=== PATIENT | female | born 1945 | race Caucasian/White ===

== ENCOUNTER 2017-04-22 12:08 | Inpatient (IN) | payer MEDICARE ==
[~2017-04-22] VITALS: Ht 165.1 cm; Wt 96.2 kg
--- NOTE | ~2017-04-22 | OP ---
PATIENT NAME: FRANCESCO SAMAYOA MEDICAL RECORD: [id number] :45 LOCATION:D.M2 D.2129 ADMISSION DATE:04/22/17 SURGEON: NAZARIO DUNLAP MD DATE OF OPERATION: 04/23/2017 PROCEDURE: Left heart catheterization, selective coronary angiography, right femoral artery approach. CATHETERS: A 5-Latvian sheath, 5/4 left and right Edin, 5/4 pig. The procedure was well tolerated and the patient was returned to steiner, sheath removed. ExoSeal device placed. FINDINGS: Left ventriculography in 30-degree SALINAS view shows global hypokinesis. Overall, function reduced to 30%. CORONARY ANATOMY: LEFT MAIN: Left main is free of disease. LAD: Free of disease in the diagonal system. CIRCUMFLEX: Free of disease in the marginal system. RIGHT CORONARY ARTERY: Huge dominant, right, free of disease. IMPRESSION: Nonischemic cardiomyopathy, this may be tachy-mediated. She had a run of SVT while in the lab. Might also be secondary to hypothyroidism given her marked elevated TSH. We will start on beta blockade. It should help with cardiomyopathy as well as arrhythmia. Add Aldactone. Thyroid will be addressed with primary care. TRANSINT:[id number] Voice Confirmation ID: [id number] DOCUMENT ID: [id number] NAZARIO DUNLAP MD at 1337 CC: [id number] DICTATION DATE: 04/23/17 1323 BUFFING MACHINE OPERATOR SEMIAUTOMATIC: 04/24/17 0112 DIS IN 04/24/17 [place] [address]
--- NOTE | ~2017-04-22 | EC ---
PATIENT:FRANCESCO SAMAYOA DATE OF SERVICE: 04/22/17 SEX: F MEDICAL RECORD: [id number] DATE OF : 45 LOCATION:D.M2 D.212 AGE OF PATIENT: 71 ADMISSION DATE: 04/22/17 REFERRING PHYSICIAN: INTERPRETING PHYSICIAN: NAZARIO DUNLAP MD ECHOCARDIOGRAM REPORT ECHO CHARGES 4 ECHO COMPLETE CLINICAL DIAGNOSIS: CHEST PAIN HX OF HTN ECHOCARDIOGRAPHIC MEASUREMENTS (adult normal given) AC root (d.<3.7cm) 3.9 cm LV Septum d (<1.2 cm> 1.2 cm Valve Excursion 2.1 cm LV Septum (systole) 1.4 cm Left Atria (s.<4.0cm> 4.1 cm LVPW d(<1.2cm) 1.3 cm RV (d.<2.3cm) 3.3 cm LVPW (sytole) 1.5 cm LV diastole(<5.6CM) 5.3 cm MV E-F(>70mm/sec) cm LV systole 3.9 cm LVOT Diameter 2.1 cm MV exc.(>10mm) 1.9 cm Est.ejection fraction (50-75%) % Pericardial Effusion N DOPPLER: LVIT cm/sec A 96.0 cm/sec E 79.0 cm/sec LA cm/sec RVSP mmHg LVOT 99 cm/sec AOP1/2T m/s Asc. Ao 92 cm/sec RVOT cm/sec RA 94 cm/sec PA 103 cm/sec AV Gradient Peak 3.40 mmHg AV Mean 1.86 mmHg AV Area 4.0 cm MV Gradient Peak 4.43 mmHg MV Mean 2.01 mmHg MV Area cm COMMENTS: Rn Ante Partum: 2 SHAHANA SLATER Medical Malpractice Paralegal: 3 Dr. Mullen TAPE# PACS DATE OF SERVICE: 04/23/2017 Adequate 2D echo, color flow, spectral and M-mode. Borderline LVH. LV internal dimensions appear normal. There is global LV hypokinesis, reduced EF. Estimated EF 35%. Aortic valve is tricuspid. No stenosis by Doppler interrogation. The left atrium is upper limits of normal, mildly dilated at 4.1 cm. Mitral valve is thickened. Mild MR. Right-sided chamber is grossly normal. Mild TR by color flow imaging. TRANSINT:[id number] Voice Confirmation ID: [id number] DOCUMENT ID: [id number] ECHOCARDIOGRAM REPORT [id number] DANITAFRANCESCO 04/27/2017 Edited to correct date of service, dmm. NAZARIO DUNLAP MD at 1337 CC: [id number] DICTATION DATE: 04/24/17 1035 SENIOR PROJECT ACCOUNTANT: 04/24/17 1205 DIS IN 04/24/17 [place] [id number] [place] [id number]
--- NOTE | ~2017-04-22 | HEMODYNAMI ---
PATIENT:FRANCESCO SAMAYOA MEDICAL RECORD: [id number] : 45 LOCATION[facility].2[address] [facility]# [id number] ADMISSION DATE: 04/22/17 Generatedon:04/23/201713:23 Patient name: FRANCESCO SAMAYOA Patient #: [id number] SSN : : 1945 Date of study: 04/23/2017 Page: Of Hemodynamic Procedure Report Patient Data Patient Demographics Procedure consent was obtained First Name: FRANCESCO Gender: Female Last Name: DANITA : 1945 Patient #: [id number] Age: 71 year(s) Race: Additional ID: [id number] Contact details Address: [address] [place] [address] State: [place]: [facility] [place] Zip code: [address] Admission Admission Data Admission Date: 04/22/2017 Admission Time: 20:40 Room #: D.2129 Lab Results Lab Result Date: 04/23/2017 Lab Result Time: 0:00 Biochemistry Name Units Result Min Max BUN mg/dl 22 --(----)-* 7 18 Creatinine mg/dl 1.3 --(---*)-- 0.6 1.3 CBC Name Units Result Min Max Hemoglobin g/dl 12.6 -*(----)-- 13.5 17.5 Procedure Procedure Types Cath Procedure Diagnostic Procedure C [facility] w/Coronaries Miscellaneous Procedures Moderate Sedation up to 15 minutes Procedure Description Procedure Date Procedure Date: 04/23/2017 Procedure Start Time: 13:08 Procedure End Time: 13:19 Procedure Staff Name Function Owen Mullen MD Performing Physician Carmen Marie RT Monitor Kriss Baker RT Scrub Peng Larkin RN Nurse Procedure Data Cath Procedure Fluoroscopy Diagnostic fluoroscopy Total fluoroscopy Time: 1.1 time: 1.1 min min Diagnostic fluoroscopy Total fluoroscopy dose: 318 dose: 318 mGy mGy Contrast Material Contrast Material Type Amount (ml) Isovue 300 39 Entry Location Entry Primary Successful Side Size Upsize Upsize Entry Closure Succes sful Closure Location (Fr) 1 (Fr) 2 (Fr) Remarks Device Remarks Femoral Right 5 Fr Exoseal artery Estimated blood loss: 5 ml Diagnostic catheters Device Type Used For End Catheter Placement MULTIPACK JL 4.0 5Fr Left Coronary catheter Angiography MULTIPACK 3DRC 5Fr Right Coronary catheter Angiography MULTIPACK Pigtail 5 Fr Multi-vessel catheter Angiography Procedure Complications No complications Procedure Medications Medication Administration Route Dosage 0.9% NaCl I.V. 100 ml/hr Oxygen NC 2 l/min Heparin Flush Bag added to field 2 bags (1000units/500ml NS) Lidocaine 2% added to field 20 Versed I.V. 0.5 mg Fentanyl I.V. 25 mcg Adenosine IV 3mg/ml I.V. 12 mg Hemodynamics Rest HGB: 12.6 (g/dl) Heart Rate: 96 (bpm) Pressure Samples Time Site Value (mmHg) Purpose Heart Use Rate(bpm) 13:15 LV 154/34,31 Snapshot 110 13:15 AO 166/90(109) Pullback 106 Gradients Valve Time Site Site 2 Mean SEP/DFP Peak To Heart Use 1 (mmHg) (sec/min) Peak Rate (mmHg) (bpm) Aortic 13:15 LV AO 106 166/90(109) Snapshots Pre Cath Intra NCS Post Cath Vital Signs Time Heart Resp SPO2 etCO2 NIBP (mmHg) Rhythm Pain Sedation Rate (ipm) (%) (mmHg) Status Level (bpm) 12:51:05 98 21 95 28 161/105(147) NSR 0 (11) 10(A) , No pain 12:55:56 90 18 98 33.3 161/105(135) ST 0 (11) 10(A) , No pain 13:01:27 164 20 96 26.5 126/104(115) ST 0 (11) 10(A) , No pain 13:14:40 127 18 91 32.5 121/95(114) ST 0 (11) 9(A) , No pain 13:20:10 87 11 91 30.3 162/95(127) NSR 0 (11) 10(A) , No pain Medications Time Medication Route Dose Verified Delivered Reason Notes Effe ctiveness by by 12:53:54 0.9% NaCl I.V. 100 Peng Peng Per ml/hr Trae Larkin physician RN RN 12:54:07 Oxygen NC 2 Peng Peng Per l/min Trae Larkin physician RN RN 12:54:20 Heparin Flush added 2 Peng Peng used for Bag to bags Lorigan Lorvi procedure (1000units/500ml field RN RN NS) 12:54:36 Lidocaine 2% added 20ml Peng Peng for local to vial Lorigan Lorigan anesthetic field RN RN 13:07:15 Versed I.V. 0.5 Peng Peng for mg Lorigan Lorigan sedation RN RN 13:09:48 Fentanyl I.V. 25 Peng Peng for mcg Lorigan Lorigan sedation RN RN 13:16:00 Adenosine IV I.V. 12 mg Peng Peng for 3mg/ml Lorigan Lorigan arrhythmia RN technical support agent Log Time Note 12:36:49 Informed consent obtained and on chart 12:37:41 Kriss Baker RT(R) sent for patient. Start room use. 12:37:42 Time tracking: Regular hours 12:37:47 Plan of Care:Hemodynamics will remain stable., Cardiac rhythm will remain stable., Comfort level will be maintained., Respiratory function will remain adequate., Patient/ family verbilizes understanding of procedure., Procedure tolerated without complication., Recovers from procedure without complications.. 12:41:21 Patient received from Med II to CCL 1 Alert and oriented. Tansferred to table in Supine position. 12:41:23 Warm blankets applied, and emy hugger turned on for patient comfort. 12:41:23 Correct patient and procedure confirmed by team. 12:41:25 ECG and BP/O2 sat monitors applied to patient. 12:50:01 Baseline sample Acquired. 12:50:01 Vital chart was started 12:50:05 Rhythm: sinus rhythm 12:50:08 Full Disclosure recording started 12:50:12 H&P Date Dictated: 04/23/2017 New H&P dictated by physician.. 12:50:20 Pre-procedure instructions explained to patient. 12:50:21 Pre-op teaching completed and patient verbalized understanding. 12:50:22 Family in waiting room. 12:50:24 Patient NPO since Midnight. 12:50:30 Is the patient allergic to Iodine/contrast media? No. 12:50:32 Was the patient premedicated? No 12:50:33 Is patient on blood thinner?No 12:50:35 Patient diabetic? No. 12:50:38 Previous problem with sedation/anesthesia? No ? 12:50:40 Snore? Yes 12:50:47 Sleep apnea? No 12:50:49 Deviated septum? No 12:50:49 Opens mouth fully? Yes 12:50:50 Sticks out tongue? Yes 12:50:53 Airway obstruction? No ? 12:50:57 Dentures? No ? 12:51:01 Pre procedure: right dorsailis pedis pulse 1+ Palpable, but thready & weak; easily obliterated 12:51:03 Pre procedure: left dorsailis pedis pulse 1+ Palpable, but thready & weak; easily obliterated 12:51:07 Patient pain scale 0/10 ?. 12:53:54 0.9% NaCl 100 ml/hr I.V. was administered by Peng Larkin RN; Per physician; 12:54:07 Oxygen 2 l/min NC was administered by Peng Larkin RN; Per physician; 12:54:20 Heparin Flush Bag (1000units/500ml NS) 2 bags added to field was administered by Peng Larkin RN; used for procedure; 12:54:36 Lidocaine 2% 20ml vial added to field was administered by Peng Larkin RN; for local anesthetic; 12:56:26 Lab Result : BUN 22 mg/dl 12:56:26 Lab Result : Hemoglobin 12.6 g/dl 12:56:26 Lab Result : Creatinine 1.3 mg/dl 12:56:30 Lab results completed and on chart. 12:56:35 Right groin area was prepped with chlora-prep and draped in sterile fashion 12:56:36 Alarms reviewed by R. N. 12:56:37 Sharps counted by scrub and verified by R.N. 13:02:25 Zero performed for pressure channel P1 13:04:48 Physician arrived 13:04:48 --------ALL STOP TIME OUT------ 13:04:49 Final Timeout: patient, procedure, and site verified with staff and physician. All members of the team are in agreement. 13:04:52 Right groin site verified by team. 13:04:55 Physical assessment completed. ASA score P 2 - A patient with mild systemic disease as per Owen Mullen MD. 13:04:59 Sedation plan: IV Moderate Sedation Medication:Versed, Fentanyl 13:07:15 Versed 0.5 mg I.V. was administered by Peng Larkin RN; for sedation; 13:08:10 Use device set Femoral Dx 13:08:12 ACIST Syringe (83781) opened to sterile field. 13:08:12 Bag Decanter (2002S) opened to sterile field. 13:08:13 Medline Cath Pack ([id number]) opened to sterile field. 13:08:13 SHEATH 5FR [place] (KNP810) opened to sterile field. 13:08:14 DIAGNOSTIC WIRE .035 260cm J wire (709109) opened to sterile field. 13:08:15 ACIST Hand Control (07087) opened to sterile field. 13:08:16 ACIST Manifold (30375) opened to sterile field. 13:08:16 DIAGNOSTIC Multipack 5Fr catheter set (CI4546) opened to sterile field. 13:08:17 Tegaderm 4 x 4 (1626W) opened to sterile field. 13:08:22 Procedure started. 13:08:25 Local anesthetic to right femoral artery with Lidocaine 2% by Owen Mullen MD.INITIAL ACCESS ONLY 13:08:36 A 5 Fr sheath was inserted into the Right Femoral artery 13:09:32 A MULTIPACK JL 4.0 5Fr catheter was advanced over the wire and used for Left Coronary Angiography. 13:09:48 Fentanyl 25 mcg I.V. was administered by Peng Larkin RN; for sedation; 13:10:22 LCA angiography performed. 13:10:38 Injector settings: Ml/sec: 3, Volume: 6, 13:11:15 Catheter removed. 13:11:39 A MULTIPACK 3DRC 5Fr catheter was advanced over the wire and used for Right Coronary Angiography. 13:12:10 RCA angiography performed. 13:12:13 Injector settings: Ml/sec: 3, Volume: 6, 13:14:31 Catheter removed. 13:14:37 A MULTIPACK Pigtail 5 Fr catheter was advanced over the wire and used for Multi-vessel Angiography. 13:15:32 LV hemodynamics recorded. 13:15:34 LV gram done using SALINAS 13:15:59 EF : 30 % 13:16:00 Adenosine IV 3mg/ml 12 mg I.V. was administered by Peng Larkin RN; for arrhythmia; 13:16:08 Catheter removed. 13:16:10 EXOSEAL 5Fr (EX500) opened to sterile field. 13:16:26 Sheath removed intact; hemostasis achieved with Exoseal to the Right Femoral artery. 13:16:29 Procedure ended.(Physican Out) 13:16:34 Fluoroscopy time 01.10 minutes. 13:16:39 Fluoroscopy dose: 318 mGy 13:16:39 Flurop Dose total: 318 13:17:40 Contrast amount:Isovue 300 39ml. 13:17:42 Sharps counted by scrub and verified by R.N. 13:18:18 Insertion/operative site no bleeding no hematoma. 13:18:21 Post-op/insertion site Right Femoral artery dressed using a 4 x 4 and Tegaderm. 13:18:24 Post right femoral artery:stable 13:18:26 Post Procedure Pulses reassessed and unchanged 13:18:29 Post procedure rhythm: unchanged. 13:18:32 Estimated blood loss: 5 ml 13:18:34 Post procedure instruction explained to patient.Patient verbalizes understanding. 13:18:34 Patient needs reinforcement of post procedure teaching. 13:18:48 Procedure and supply charges have been captured, reviewed, submitted and are correct. 13:18:52 Procedure Complication : No complications 13:18:55 Vital chart was stopped 13:18:56 See physician's report for complete and final results. 13:18:59 Report given to [facility]. 13:19:01 Patient transfered to [facility] with Stretcher. 13:19:04 Procedure ended. 13:19:04 Full Disclosure recording stopped 13:19:09 End room use (Document Last) Device Usage Item Name Manufacture Quantity Catalog Hospital Part Current Minimal L ot# / Number Charge Number Stock Stock Serial# Code ACIST Acist 1 59763 306334 239413 289673 20 Syringe Medical (06789) Systems Inc Bag Microtek 1 805181 17738 790916 5 Decanter Medical Inc. () Medline Cardinal 1 [id number] 599732 69218 572409 5 Cath Pack ThingMagic ([id number]) SHEATH 5FR Terumo 1 [id number] 154705 879582 099483 40 [place] (KJP746) DIAGNOSTIC [place] 1 793039 771981 156068 471012 30 WIRE .035 260cm J wire (354359) ACIST Hand Acist 1 10979 521589 643136 617667 5 Control Medical (64614) Systems Inc ACIST Acist 1 61659 671525 398448 013754 5 Manifold Medical (52177) Systems Inc DIAGNOSTIC Cardinal 1 [id number] 780608 73490 322343 30 Multipack Health 5Fr catheter set (KP5746) Tegaderm 4 3M 1 1626W 613356 767468 248489 5 x 4 (1626W) MULTIPACK Cardinal 1 505506 5 JL 4.0 5Fr Health catheter MULTIPACK Cardinal 1 623613 5 3DRC 5Fr Health catheter MULTIPACK Cardinal 1 894338 5 Pigtail 5 Health Fr catheter EXOSEAL 5Fr Cardinal 1 EX500 841534 105931 446641 10 (EX500) Health Signature Audit [place] Stage Time Signature Unsigned Intra-Procedure 04/23/2017 Carmen Marie 1:23:00 PM RT(R) Signatures Monitor : Carmen Marie RT Signature : Date : Time : [place] [id number] [facility] [place] [address]
--- NOTE | ~2017-04-22 | CN ---
PATIENT NAME:FRANCESCO SAMAYOA MEDICAL RECORD: [id number] : 45 LOCATION:D. D.2129 ADMIT DATE: 04/22/17 ACCOUNT: [id number] CONSULTING PHYSICIAN: NAZARIO DUNLAP MD REFERRING PHYSICIAN: REINA ALFONSO MD DATE OF CONSULTATION: 04/23/2017 HISTORY OF PRESENT ILLNESS: A 71-year-old lady, really history begins with history of PMR. She has been started on high-dose steroids, tapering dose. [place] not well since that time. Noticed some marked increase in dyspnea over the last 14 days. She was traveling from [place], sent here. In the Emergency Room, negative CTA. Cardiac enzymes noted to be elevated consistent with ACS. She has a history of hypertension, hypothyroidism, and PMR. ALLERGIES: None known. SOCIAL HISTORY: Retired. Nonsmoker. Easily takes care of all ADLs. Has no set exercise program. MEDICATIONS: Unknown by the patient report. REVIEW OF SYSTEMS: The patient reports easy bruising but reports no swollen glands. The patient reports no fever, no night sweats, no significant weight gain, no significant weight loss. No significant exercise tolerance. The patient reports no dry eyes, no irritation, no vision change. Patient reports no difficulty hearing and no ear pain. Patient reports no frequent nose bleeds or nose and sinus problems. Patient reports on arm pain on exertion. No shortness of breath while lying down. No history of heart murmur. Patient reports no cough, no wheezing or coughing up blood. Patient reports no abdominal pain, no vomiting. Normal appetite. No diarrhea and not vomiting blood. No nausea and no constipation. Patient reports no incontinence. No difficulty urinating. No hematuria. No increased frequency. Patient reports no muscle aches. No weakness, no arthralgias, no back pain. No swelling of the extremities. Patient reports no abnormal mole, no jaundice, no rashes. Reports no loss of consciousness. No weakness and no numbness. No seizures, dizziness, or headaches. The patient reports no depression, no sleep disturbance, feeling safe in a relationship and no alcohol abuse. Patient reports on fatigue. Reports no runny nose or sinus pressure. No itching, no hives, and no frequent sneezing. PHYSICAL EXAMINATION: GENERAL: Pleasant female, in no acute distress. VITAL SIGNS: Blood pressure 142/83, pulse 85 and regular. HEENT: Normocephalic, atraumatic. She does have garcia facies of chronic steroid use. NECK: No JVD or bruit. HEART: Regular. A I-II/ systolic ejection murmur. LUNGS: Fair air excursion. ABDOMEN: Soft, nontender. EXTREMITIES: Pulses are 2+. There is no edema. Both upper extremities show ecchymosis consistent with steroids. NEUROLOGIC: Grossly intact. IMPRESSION: Symptomatology, abnormal ECG, elevated enzymes, fairly acute course. CONSULT REPORT [id number] FRANCESCO SAMAYOA PLAN: We will plan for diagnostic angiography, intervention based on the above. TRANSINT:[id number] Voice Confirmation ID: [id number] DOCUMENT ID: [id number] NAZARIO DUNLAP MD at 1129 CC: [id number] DICTATION DATE: 04/23/17 1049 ECONOMICS CONSULTANT: 04/23/17 1243 ADM IN [place] [id number] [place] [address]
[2017-04-22 13:02] LABS: INR 0.88 (0.85-1.17); PROTIME 11.6 SECONDS (11.6-15.0)
[2017-04-22 13:04] LABS: BASOPHILS 0.2 % (0-2); EOSINOPHILS 0.6 % (0-7); HEMATOCRIT 43.4 % (36.0-48.0); HEMOGLOBIN 13.3 g/dL (12-16); IMMATURE GRANULOCYTES 0.8 % (0-5); LYMPHOCYTES 17.3 % (15-50); MCH 24.6 pg (26.0-34.0); MCHC 30.6 g/dL (31.0-37.0); MCV 80.2 fL (80.0-100.0); MEAN PLATELET VOLUME 11.6 fL (7.4-10.4); MONOCYTES 4.9 % (2-11); NEUTROPHILS 76.2 % (40-80); PLATELET COUNT 262 10x3/uL (130-400); RBC 5.41 10x6/uL (4.00-5.40); RDW 16.7 % (11.5-14.5)
[2017-04-22 13:16] LABS: ALBUMIN 3.4 g/dL (3.4-5.0); BILIRUBIN - TOTAL 0.45 mg/dL (0.2-1.3); CALCIUM 9.3 mg/dL (8.5-10.1); CARBON DIOXIDE 23.8 mmol/L (21.0-32.0); CREATININE - SERUM 1.5 mg/dL (0.6-1.3); MAGNESIUM - SERUM 1.8 mg/dL (1.8-2.4); POTASSIUM - SERUM 3.8 mmol/L (3.5-5.1); PROTEIN - SERUM 6.5 g/dL (6.4-8.2)
[2017-04-22 13:18] LABS: TROPONIN-I 0.064 ng/mL (0.000-0.060)
[2017-04-22 14:23] LABS: C-REACTIVE PROTEIN 1.3 mg/dL (0.0-0.9)
[2017-04-22 14:24] LABS: THYROID STIMULATING HORMONE 72.19 uIU/mL (0.36-3.74)
[2017-04-22 20:04] LABS: APPEARANCE CLEAR (CLEAR); BILIRUBIN NEGATIVE (NEGATIVE); COLOR YELLOW (YELLOW); GLUCOSE 50 mg/dL (NEGATIVE); KETONE NEGATIVE (NEGATIVE); NITRITE NEGATIVE (NEGATIVE); PROTEIN NEGATIVE (NEGATIVE); SPECIFIC GRAVITY 1.015 (1.005-1.020); UROBILINOGEN NORMAL (NORMAL)
[2017-04-23] MEDS ORDERED: SYNTHROID50 MCG PO (00:45)
[2017-04-23 00:48] VITALS: BP 137/92; BMI 29.0
[2017-04-23] MEDS ORDERED: THYROID MEDICINE PO (01:00)
[2017-04-23] MEDS ORDERED: PROZAC20 MG PO (01:01)
[2017-04-23] MEDS ORDERED: HIGH BLOOD PRESSURE PO (01:01)
[2017-04-23] MEDS ORDERED: STEROID PO (01:01)
[2017-04-23 01:26] LABS: CKMB 1.7 U/L (0.0-3.6); CREATINE KINASE 84 UL (21-215)
[2017-04-23 03:08] LABS: BASOPHILS 0.1 % (0-2); EOSINOPHILS 0.1 % (0-7); HEMATOCRIT 39.4 % (36.0-48.0); HEMOGLOBIN 12.2 g/dL (12-16); IMMATURE GRANULOCYTES 0.6 % (0-5); LYMPHOCYTES 19.8 % (15-50); MCH 24.8 pg (26.0-34.0); MCV 80.2 fL (80.0-100.0); MEAN PLATELET VOLUME 11.5 fL (7.4-10.4); MONOCYTES 5.2 % (2-11); NEUTROPHILS 74.2 % (40-80); PLATELET COUNT 250 10x3/uL (130-400); RBC 4.91 10x6/uL (4.00-5.40); RDW 16.6 % (11.5-14.5); WBC 16.4 10x3/uL (4.8-10.8)
[2017-04-23 03:44] LABS: ALBUMIN 2.9 g/dL (3.4-5.0); ALKALINE PHOSPHATASE 62 U/L (46-116); ALT (SGPT) 31 U/L (10-68); BILIRUBIN - TOTAL 0.36 mg/dL (0.2-1.3); CALC OSMOLALITY 286 mosm/kg (275-300); CALCIUM 9.3 mg/dL (8.5-10.1); CARBON DIOXIDE 26.5 mmol/L (21.0-32.0); CHLORIDE - SERUM 103 mmol/L (98-107); CKMB 1.6 U/L (0.0-3.6); CREATINE KINASE 77 UL (21-215); CREATININE - SERUM 1.4 mg/dL (0.6-1.3); GLUCOSE 183 mg/dL (74-106); PROTEIN - SERUM 6.2 g/dL (6.4-8.2); SODIUM 140 mmol/L (136-145); TROPONIN-I 0.071 ng/mL (0.000-0.060); UREA NITROGEN 21 mg/dL (7-18); eGFR NON AFRICAN AMERICAN 39 mL/min (90-120)
[2017-04-23 06:23] VITALS: BP 105/66
[2017-04-23 08:00] VITALS: BP 142/83
[2017-04-23 08:20] LABS: CKMB 2.2 U/L (0.0-3.6); CREATINE KINASE 86 UL (21-215); TROPONIN-I 0.064 ng/mL (0.000-0.060)
[2017-04-23 09:30] VITALS: Ht 165.1 cm; Wt 96.2 kg
[2017-04-23 09:57] LABS: T4 THYROXIN - FREE 0.18 ng/dL (0.76-1.46); THYROID STIMULATING HORMONE 79.77 uIU/mL (0.36-3.74)
[2017-04-23 10:08] LABS: BASOPHILS 0.1 % (0-2); EOSINOPHILS 0.6 % (0-7); HEMATOCRIT 40.5 % (36.0-48.0); HEMOGLOBIN 12.6 g/dL (12-16); IMMATURE GRANULOCYTES 0.5 % (0-5); LYMPHOCYTES 30.7 % (15-50); MCH 25.2 pg (26.0-34.0); MCHC 31.1 g/dL (31.0-37.0); MEAN PLATELET VOLUME 11.1 fL (7.4-10.4); MONOCYTES 4.3 % (2-11); NEUTROPHILS 63.8 % (40-80); PLATELET COUNT 242 10x3/uL (130-400); RDW 16.6 % (11.5-14.5)
[2017-04-23 10:14] LABS: ANION GAP 19.3 mmol/L (8-16); CALCIUM 9.2 mg/dL (8.5-10.1); CARBON DIOXIDE 23.5 mmol/L (21.0-32.0); CREATININE - SERUM 1.3 mg/dL (0.6-1.3); POTASSIUM - SERUM 3.8 mmol/L (3.5-5.1)
[2017-04-23 12:00] VITALS: BP 128/81
[2017-04-23 16:00] VITALS: BP 155/105
[2017-04-23 21:36] VITALS: BP 124/80
[2017-04-24 01:29] VITALS: BP 131/87
[2017-04-24 04:48] LABS: BASOPHILS 0.1 % (0-2); EOSINOPHILS 1.3 % (0-7); HEMATOCRIT 39.7 % (36.0-48.0); IMMATURE GRANULOCYTES 0.4 % (0-5); LYMPHOCYTES 31.5 % (15-50); MCH 24.7 pg (26.0-34.0); MCHC 30.2 g/dL (31.0-37.0); MCV 81.9 fL (80.0-100.0); MEAN PLATELET VOLUME 11.3 fL (7.4-10.4); MONOCYTES 4.2 % (2-11); NEUTROPHILS 62.5 % (40-80); PLATELET COUNT 234 10x3/uL (130-400); RBC 4.85 10x6/uL (4.00-5.40); RDW 16.9 % (11.5-14.5); WBC 14.1 10x3/uL (4.8-10.8)
[2017-04-24 04:54] LABS: APPEARANCE CLEAR (CLEAR); BILIRUBIN NEGATIVE (NEGATIVE); COLOR YELLOW (YELLOW); GLUCOSE NEGATIVE (NEGATIVE); KETONE SMALL mg/dL (NEGATIVE); NITRITE NEGATIVE (NEGATIVE); PROTEIN NEGATIVE (NEGATIVE); UROBILINOGEN NORMAL (NORMAL)
[2017-04-24 05:07] LABS: ANION GAP 13.1 mmol/L (8-16); CALCIUM 8.5 mg/dL (8.5-10.1); CARBON DIOXIDE 27.6 mmol/L (21.0-32.0); CREATININE - SERUM 1.3 mg/dL (0.6-1.3); POTASSIUM - SERUM 3.7 mmol/L (3.5-5.1)
[2017-04-24] MEDS ORDERED: PRINIVIL10 MG PO (08:59)
[2017-04-24] MEDS ORDERED: PROZAC10 MG PO (08:59)
[2017-04-24] MEDS ORDERED: SYNTHROID75 MCG PO (09:00)
[2017-04-24] MEDS ORDERED: PREDNISONE20 MG PO (09:00)
[2017-04-24 10:22] VITALS: BP 148/91
[2017-04-24 13:42] VITALS: BP 116/76
[2017-04-24 16:35] VITALS: BP 155/97
[2017-04-24] MEDS ORDERED: COREG6.25 MG PO (18:24)
[2017-04-24] MEDS ORDERED: ALDACTONE25 MG PO (18:25)
[2017-04-24 20:04] VITALS: BP 142/89
== END 2017-04-24 20:24 | disposition home or self-care (01) | DRG 287 ==
LOC: D.ER 12:08 → D.M2 20:40
PROVIDERS: Emergency Medicine; Family Medicine; Internal Medicine Interventional Cardiology; Internal Medicine Nephrology; Nurse Practitioner Family
PROC: B2151ZZ Fluoroscopy of Left Heart using Low Osmolar Contrast (ICD-10-PCS; 2017-04-23)
PROC: 4A023N7 Measurement of Cardiac Sampling and Pressure, Left Heart, Percutaneous Approach (ICD-10-PCS; 2017-04-23)
PROC: B2111ZZ Fluoroscopy of Multiple Coronary Arteries using Low Osmolar Contrast (ICD-10-PCS; principal; 2017-04-23 12:37)
DX: I11.0 Hypertensive heart disease with heart failure (principal); N17.9 Acute kidney failure, unspecified; I42.9 Cardiomyopathy, unspecified; I50.33 Acute on chronic diastolic (congestive) heart failure; R00.0 Tachycardia, unspecified; T38.0X5A Adverse effect of glucocorticoids and synthetic analogues, initial encounter; M35.3 Polymyalgia rheumatica; E03.9 Hypothyroidism, unspecified; R94.31 Abnormal electrocardiogram [ECG] [EKG]; R51 Headache; E78.5 Hyperlipidemia, unspecified; R79.89 Other specified abnormal findings of blood chemistry; F32.9 Major depressive disorder, single episode, unspecified

== ENCOUNTER 2017-04-27 10:21 | Inpatient (IN) | payer MEDICARE ==
[~2017-04-27] VITALS: Ht 165.1 cm; Wt 80.9 kg
[~2017-04-27 10:21] MED LIST: ALDACTONE25 MG PO; COREG6.25 MG PO; HIGH BLOOD PRESSURE PO; PREDNISONE20 MG PO; PRINIVIL10 MG PO; PROZAC10 MG PO; PROZAC20 MG PO; STEROID PO; SYNTHROID50 MCG PO; SYNTHROID75 MCG PO; THYROID MEDICINE PO
[2017-04-27 10:50] LABS: BASOPHILS 0.1 % (0-2); EOSINOPHILS 0.9 % (0-7); HEMATOCRIT 39.5 % (36.0-48.0); IMMATURE GRANULOCYTES 0.9 % (0-5); LYMPHOCYTES 26.4 % (15-50); MCHC 30.4 g/dL (31.0-37.0); MCV 82.3 fL (80.0-100.0); MEAN PLATELET VOLUME 11.1 fL (7.4-10.4); MONOCYTES 3.9 % (2-11); NEUTROPHILS 67.8 % (40-80); PLATELET COUNT 273 10x3/uL (130-400); RDW 16.9 % (11.5-14.5); WBC 19.2 10x3/uL (4.8-10.8)
[2017-04-27 11:09] LABS: ALBUMIN 3.3 g/dL (3.4-5.0); ALKALINE PHOSPHATASE 67 U/L (46-116); ALT (SGPT) 62 U/L (10-68); CALC OSMOLALITY 290 mosm/kg (275-300); CALCIUM 8.9 mg/dL (8.5-10.1); CARBON DIOXIDE 25.8 mmol/L (21.0-32.0); CHLORIDE - SERUM 110 mmol/L (98-107); CREATININE - SERUM 1.3 mg/dL (0.6-1.3); GLUCOSE 115 mg/dL (74-106); POTASSIUM - SERUM 3.7 mmol/L (3.5-5.1); PROTEIN - SERUM 6.6 g/dL (6.4-8.2); SODIUM 145 mmol/L (136-145); UREA NITROGEN 15 mg/dL (7-18); eGFR NON AFRICAN AMERICAN 43 mL/min (90-120)
[2017-04-27 11:17] LABS: CHOL - HDL RATIO 3.6 ratio (2.3-4.1); CHOLESTEROL, TOTAL 268 mg/dL (0-200); CKMB 2.2 U/L (0.0-3.6); CREATINE KINASE 119 UL (21-215); HDL CHOLESTEROL 74 mg/dL (32-96); LDL CHOLESTEROL 152 mg/dL (0-100); LDL-HDL RATIO 2.1 ratio (1.5-3.5); PRO BNP 1548 pg/mL (0-125); TRIGLYCERIDE 213 mg/dL (30-200); TROPONIN-I 0.018 ng/mL (0.000-0.060)
[2017-04-28] VITALS (7 sets, daily range): BP systolic 120–195; BP diastolic 56–93; Ht 165.1 cm; Wt 80.9 kg
[2017-04-28 14:04] LABS: BASOPHILS 0.2 % (0-2); HEMATOCRIT 40.9 % (36.0-48.0); HEMOGLOBIN 12.3 g/dL (12-16); IMMATURE GRANULOCYTES 0.6 % (0-5); LYMPHOCYTES 25.4 % (15-50); MCH 24.7 pg (26.0-34.0); MCHC 30.1 g/dL (31.0-37.0); MCV 82.3 fL (80.0-100.0); MEAN PLATELET VOLUME 11.7 fL (7.4-10.4); MONOCYTES 5.4 % (2-11); NEUTROPHILS 67.4 % (40-80); PLATELET COUNT 196 10x3/uL (130-400); RBC 4.97 10x6/uL (4.00-5.40); RDW 17.2 % (11.5-14.5); WBC 14.3 10x3/uL (4.8-10.8)
[2017-04-28 14:25] LABS: ALBUMIN 3.2 g/dL (3.4-5.0); ANION GAP 13.9 mmol/L (8-16); BILIRUBIN - TOTAL 0.58 mg/dL (0.2-1.3); CALCIUM 8.9 mg/dL (8.5-10.1); CARBON DIOXIDE 27.9 mmol/L (21.0-32.0); CREATININE - SERUM 1.6 mg/dL (0.6-1.3); POTASSIUM - SERUM 3.8 mmol/L (3.5-5.1); PROTEIN - SERUM 6.3 g/dL (6.4-8.2)
[2017-04-29 00:59] VITALS: BP 105/79
[2017-04-29 05:11] LABS: BASOPHILS 0.1 % (0-2); EOSINOPHILS 1.3 % (0-7); HEMATOCRIT 41.2 % (36.0-48.0); HEMOGLOBIN 12.3 g/dL (12-16); IMMATURE GRANULOCYTES 0.5 % (0-5); LYMPHOCYTES 34.2 % (15-50); MCH 24.6 pg (26.0-34.0); MCHC 29.9 g/dL (31.0-37.0); MCV 82.4 fL (80.0-100.0); MEAN PLATELET VOLUME 11.5 fL (7.4-10.4); MONOCYTES 4.4 % (2-11); NEUTROPHILS 59.5 % (40-80); RDW 17.2 % (11.5-14.5); WBC 13.7 10x3/uL (4.8-10.8)
[2017-04-29 05:16] LABS: PLATELET COUNT 267 10x3/uL (130-400)
[2017-04-29 05:26] LABS: ALBUMIN 3.2 g/dL (3.4-5.0); ANION GAP 13.2 mmol/L (8-16); BILIRUBIN - TOTAL 0.66 mg/dL (0.2-1.3); CREATININE - SERUM 1.4 mg/dL (0.6-1.3); PROTEIN - SERUM 6.8 g/dL (6.4-8.2)
[2017-04-29 05:27] VITALS: BP 115/82
[2017-04-29 05:28] LABS: POTASSIUM - SERUM 3.2 mmol/L (3.5-5.1)
[2017-04-29 07:57] VITALS: BP 126/91
[2017-04-29 11:30] VITALS: BP 134/91
[2017-04-29] MEDS ORDERED: LASIX40 MG PO (13:27)
[2017-04-29] MEDS ORDERED: K-DUR20 MEQ PO (13:27)
== END 2017-04-29 18:26 | disposition home or self-care (01) | DRG 292 ==
LOC: D.ER 10:21 → D.M2 17:45
PROVIDERS: Emergency Medicine
DX: I11.0 Hypertensive heart disease with heart failure (principal); N17.9 Acute kidney failure, unspecified; I50.23 Acute on chronic systolic (congestive) heart failure; I42.9 Cardiomyopathy, unspecified; J44.9 Chronic obstructive pulmonary disease, unspecified; E03.9 Hypothyroidism, unspecified; E78.5 Hyperlipidemia, unspecified; F32.9 Major depressive disorder, single episode, unspecified; M35.3 Polymyalgia rheumatica

== ENCOUNTER 2017-05-01 12:56 | Observation (INO) | payer MEDICARE ==
[~2017-05-01] VITALS: Ht 165.1 cm; Wt 91.8 kg
--- NOTE | ~2017-05-01 | CN ---
PATIENT NAME:FRANCESCO SAMAYOA MEDICAL RECORD: [id number] : 45 LOCATION:D.Steffi D.2116 ADMIT DATE: 05/03/17 ACCOUNT: [id number] CONSULTING PHYSICIAN: LOBO GRANT MD REFERRING PHYSICIAN: CHRISTIE TRAVIS MD DATE OF CONSULTATION: 05/02/2017 ADMITTING DIAGNOSES: 1. Nonischemic cardiomyopathy. 2. Congestive heart failure, chronic systolic dysfunction. 3. Shortness of breath, dyspnea on exertion. 4. Tachycardia. 5. Hypertension. HISTORY OF PRESENT ILLNESS: Mrs. Samayoa presented last week with shortness of breath, found to have a nonischemic cardiomyopathy, ejection fraction in the 30% range. Cardiac catheterization was performed. There was no coronary artery disease present. She was started on lisinopril and Coreg as well as Lasix and Aldactone. She has continued to be short of breath. PHYSICAL EXAMINATION: GENERAL APPEARANCE: Well-nourished, well-developed, appears stated age. Level of distress, comfortable. PSYCHIATRIC: Mental status, alert, normal affect. Orientation, oriented to time, place and person. EYES: Lids and conjunctiva, noninjected. No discharge, no pallor. ENT: Lips, teeth, gums, normal dentition. Oropharynx, no cyanosis, no pallor. NECK: Carotid arteries, bilateral normal upstroke, no bruits, no thrills. JUGULAR VEINS: No jugular venous pressure or distention. CERVICAL LYMPH NODES: Nontender, nonenlarged. THYROID: Not enlarged. Nontender. No nodules. LUNGS: Respiratory effort, unlabored. CHEST: Normal curvature. No thoracic deformity. No chest wall tenderness. Percussion, resonant. Auscultation, clear. No wheezes, no rales, no rhonchi. CARDIOVASCULAR: Precordial exam, nondisplaced. No heaves or pericardial thrills. Rate and rhythm, regular. Heart sounds, normal S1, normal S2. No S3, no gallop, no rub. Systolic murmur, not heard. Diastolic murmur, not heard. EXTREMITIES: No cyanosis, no edema. Peripheral pulses, full and equal in all extremities, except as noted. No bruits appreciated. ABDOMEN: Soft, nondistended. Normal aorta. No bruit. Nontender. No masses. Liver, nontender, no hepatomegaly. Spleen, nontender, no splenomegaly. MUSCULOSKELETAL: No joint tenderness. No joint swelling. No erythema. NEUROLOGICAL: Normal gait, normal strength, normal tone. SKIN: Warm and dry. OVERALL IMPRESSION: Nonischemic cardiomyopathy. Really she is not in overt heart failure at this time. We will increase her carvedilol to get better heart rate control, but other than medical management, there is no other workup or treatment necessary at this time. TRANSINT:[id number] Voice Confirmation ID: [id number] DOCUMENT ID: [id number] CONSULT REPORT [id number] FRANCESCO SAMAYOA, LOBO AZEVEDO at 1324 CC: [id number] DICTATION DATE: 05/02/17 1111 VALUE ANALYST: 05/02/17 1424 DIS IN 05/03/17 [facility] [address] [place] [address]
[~2017-05-01 12:56] MED LIST changes: +K-DUR20 MEQ PO; +LASIX40 MG PO
[2017-05-01 13:31] LABS: BASOPHILS 0.2 % (0-2); EOSINOPHILS 0.6 % (0-7); HEMATOCRIT 43.9 % (36.0-48.0); HEMOGLOBIN 13.5 g/dL (12-16); IMMATURE GRANULOCYTES 0.7 % (0-5); LYMPHOCYTES 18.1 % (15-50); MCH 25.1 pg (26.0-34.0); MCHC 30.8 g/dL (31.0-37.0); MCV 81.6 fL (80.0-100.0); MEAN PLATELET VOLUME 11.3 fL (7.4-10.4); MONOCYTES 3.5 % (2-11); NEUTROPHILS 76.9 % (40-80); RBC 5.38 10x6/uL (4.00-5.40); RDW 16.7 % (11.5-14.5)
[2017-05-01 13:34] LABS: PLATELET COUNT 343 10x3/uL (130-400)
[2017-05-01 13:35] LABS: ALBUMIN 3.4 g/dL (3.4-5.0); ALKALINE PHOSPHATASE 73 U/L (46-116); ALT (SGPT) 33 U/L (10-68); BILIRUBIN - TOTAL 0.89 mg/dL (0.2-1.3); CALC OSMOLALITY 290 mosm/kg (275-300); CALCIUM 10.1 mg/dL (8.5-10.1); CARBON DIOXIDE 28.5 mmol/L (21.0-32.0); CHLORIDE - SERUM 98 mmol/L (98-107); CREATININE - SERUM 2.1 mg/dL (0.6-1.3); POTASSIUM - SERUM 4.3 mmol/L (3.5-5.1); PROTEIN - SERUM 7.5 g/dL (6.4-8.2); SODIUM 138 mmol/L (136-145); UREA NITROGEN 21 mg/dL (7-18); eGFR NON AFRICAN AMERICAN 25 mL/min (90-120)
[2017-05-01 13:38] LABS: GLUCOSE 308 mg/dL (74-106)
[2017-05-01 13:47] LABS: CHOL - HDL RATIO 4.1 ratio (2.3-4.1); CHOLESTEROL, TOTAL 269 mg/dL (0-200); CKMB 1.7 U/L (0.0-3.6); CREATINE KINASE 108 UL (21-215); HDL CHOLESTEROL 66 mg/dL (32-96); LDL CHOLESTEROL 148 mg/dL (0-100); LDL-HDL RATIO 2.2 ratio (1.5-3.5); MAGNESIUM - SERUM 2.7 mg/dL (1.8-2.4); PRO BNP 828 pg/mL (0-125); TRIGLYCERIDE 279 mg/dL (30-200)
[2017-05-01 14:38] LABS: APPEARANCE CLEAR (CLEAR); BILIRUBIN NEGATIVE (NEGATIVE); COLOR YELLOW (YELLOW); GLUCOSE NEGATIVE (NEGATIVE); KETONE NEGATIVE (NEGATIVE); NITRITE NEGATIVE (NEGATIVE); PROTEIN NEGATIVE (NEGATIVE); SPECIFIC GRAVITY 1.015 (1.005-1.020); UROBILINOGEN NORMAL (NORMAL)
[2017-05-01 16:59] VITALS: BP 130/79; BMI 31.6
[2017-05-01 21:39] VITALS: BP 126/75
[2017-05-02 00:54] VITALS: BP 130/81
[2017-05-02 06:02] VITALS: BP 154/80
[2017-05-02 09:46] VITALS: BP 123/70
[2017-05-02 13:27] VITALS: Ht 165.1 cm; Wt 91.8 kg
[2017-05-02 16:21] VITALS: BP 121/68
[2017-05-02 19:00] VITALS: BP 105/49
[2017-05-03] VITALS: BP 103/62
[2017-05-03 06:47] LABS: ANION GAP 12.6 mmol/L (8-16); CALCIUM 9.7 mg/dL (8.5-10.1); CARBON DIOXIDE 32.8 mmol/L (21.0-32.0); CREATININE - SERUM 2.4 mg/dL (0.6-1.3); POTASSIUM - SERUM 4.4 mmol/L (3.5-5.1)
[2017-05-03 07:07] LABS: BASOPHILS 0.1 % (0-2); EOSINOPHILS 0.2 % (0-7); HEMATOCRIT 39.6 % (36.0-48.0); HEMOGLOBIN 11.9 g/dL (12-16); IMMATURE GRANULOCYTES 0.5 % (0-5); LYMPHOCYTES 21.7 % (15-50); MCH 24.8 pg (26.0-34.0); MCHC 30.1 g/dL (31.0-37.0); MCV 82.7 fL (80.0-100.0); MEAN PLATELET VOLUME 11.5 fL (7.4-10.4); MONOCYTES 5.9 % (2-11); NEUTROPHILS 71.6 % (40-80); PLATELET COUNT 296 10x3/uL (130-400); RBC 4.79 10x6/uL (4.00-5.40); RDW 17.1 % (11.5-14.5); WBC 16.1 10x3/uL (4.8-10.8)
[2017-05-03 08:36] VITALS: BP 133/52
[2017-05-03 09:33] VITALS: BP 133/52
[2017-05-03 12:11] VITALS: BP 98/66
[2017-05-03] MEDS ORDERED: COREG12.5 MG PO (15:08)
== END 2017-05-03 16:22 | disposition home or self-care (01) ==
LOC: D.ER 12:56 → D.M2 16:06 → OBSVTIME 16:06 → D.M2 05-03 10:13
PROVIDERS: Emergency Medicine; Internal Medicine Nephrology
DX: I11.0 Hypertensive heart disease with heart failure (principal); I50.23 Acute on chronic systolic (congestive) heart failure; N17.9 Acute kidney failure, unspecified; R00.0 Tachycardia, unspecified; E03.9 Hypothyroidism, unspecified; M35.3 Polymyalgia rheumatica; F32.9 Major depressive disorder, single episode, unspecified; R51 Headache; I42.9 Cardiomyopathy, unspecified

== ENCOUNTER 2017-08-31 13:06 | Emergency (ER) | payer MEDICARE ==
[2017-05-02 13:27] VITALS: BMI 31.6
[~2017-08-31 13:06] MED LIST changes: +COREG12.5 MG PO
[2017-08-31 14:06] LABS: BASOPHILS 0.3 % (0-2); EOSINOPHILS 2.2 % (0-7); HEMATOCRIT 39.4 % (36.0-48.0); HEMOGLOBIN 12.3 g/dL (12-16); IMMATURE GRANULOCYTES 0.6 % (0-5); LYMPHOCYTES 23.4 % (15-50); MCH 25.5 pg (26.0-34.0); MCHC 31.2 g/dL (31.0-37.0); MCV 81.7 fL (80.0-100.0); MEAN PLATELET VOLUME 11.2 fL (7.4-10.4); MONOCYTES 7.1 % (2-11); NEUTROPHILS 66.4 % (40-80); PLATELET COUNT 246 10x3/uL (130-400); RBC 4.82 10x6/uL (4.00-5.40); RDW 15.7 % (11.5-14.5); WBC 11.3 10x3/uL (4.8-10.8)
[2017-08-31 14:23] LABS: ALKALINE PHOSPHATASE 108 U/L (46-116); ALT (SGPT) 132 U/L (10-68); CALC OSMOLALITY 280 mosm/kg (275-300); CALCIUM 9.2 mg/dL (8.5-10.1); CARBON DIOXIDE 25.3 mmol/L (21.0-32.0); CHLORIDE - SERUM 98 mmol/L (98-107); CREATININE - SERUM 1.3 mg/dL (0.6-1.3); POTASSIUM - SERUM 4.8 mmol/L (3.5-5.1); PROTEIN - SERUM 7.5 g/dL (6.4-8.2); SODIUM 135 mmol/L (136-145); UREA NITROGEN 16 mg/dL (7-18); eGFR NON AFRICAN AMERICAN 43 mL/min (90-120)
[2017-08-31 14:26] LABS: GLUCOSE 285 mg/dL (74-106)
[2017-08-31 14:34] LABS: CHOL - HDL RATIO 3.9 ratio (2.3-4.1); CHOLESTEROL, TOTAL 130 mg/dL (0-200); CKMB 1.8 U/L (0.0-3.6); CREATINE KINASE 310 UL (21-215); HDL CHOLESTEROL 33 mg/dL (32-96); LDL CHOLESTEROL 63 mg/dL (0-100); LDL-HDL RATIO 1.9 ratio (1.5-3.5); TRIGLYCERIDE 170 mg/dL (30-200)
[2017-08-31 14:35] LABS: C-REACTIVE PROTEIN 1.9 mg/dL (0.0-0.9); MAGNESIUM - SERUM 1.7 mg/dL (1.8-2.4)
[2017-08-31 14:37] LABS: TROPONIN-I < 0.017 ng/mL (0.000-0.060)
== END 2017-08-31 17:05 | disposition home or self-care (01) ==
LOC: D.ER 13:06
PROVIDERS: Emergency Medicine
DX: R07.9 Chest pain, unspecified (principal); E83.42 Hypomagnesemia; R73.9 Hyperglycemia, unspecified; I49.3 Ventricular premature depolarization; I10 Essential (primary) hypertension

== ENCOUNTER 2017-09-09 14:48 | Emergency (ER) | payer MEDICARE ==
[2017-05-02 13:27] VITALS: BMI 31.6
[2017-09-09 16:00] LABS: BASOPHILS 0.2 % (0-2); EOSINOPHILS 2.5 % (0-7); HEMATOCRIT 39.7 % (36.0-48.0); HEMOGLOBIN 12.4 g/dL (12-16); IMMATURE GRANULOCYTES 0.3 % (0-5); LYMPHOCYTES 24.9 % (15-50); MCH 25.6 pg (26.0-34.0); MCHC 31.2 g/dL (31.0-37.0); MCV 81.9 fL (80.0-100.0); MEAN PLATELET VOLUME 10.3 fL (7.4-10.4); MONOCYTES 7.9 % (2-11); NEUTROPHILS 64.2 % (40-80); PLATELET COUNT 283 10x3/uL (130-400); RBC 4.85 10x6/uL (4.00-5.40); RDW 15.3 % (11.5-14.5); WBC 11.7 10x3/uL (4.8-10.8)
[2017-09-09 16:14] LABS: ALBUMIN 3.1 g/dL (3.4-5.0); ALKALINE PHOSPHATASE 69 U/L (46-116); ALT (SGPT) 35 U/L (10-68); BILIRUBIN - TOTAL 0.56 mg/dL (0.2-1.3); CALC OSMOLALITY 282 mosm/kg (275-300); CALCIUM 9.9 mg/dL (8.5-10.1); CHLORIDE - SERUM 104 mmol/L (98-107); CREATININE - SERUM 1.1 mg/dL (0.6-1.3); POTASSIUM - SERUM 3.6 mmol/L (3.5-5.1); PROTEIN - SERUM 7.4 g/dL (6.4-8.2); SODIUM 142 mmol/L (136-145); UREA NITROGEN 13 mg/dL (7-18); eGFR NON AFRICAN AMERICAN 52 mL/min (90-120)
[2017-09-09 16:17] LABS: GLUCOSE 94 mg/dL (74-106)
[2017-09-09 16:25] LABS: CHOL - HDL RATIO 2.4 ratio (2.3-4.1); CHOLESTEROL, TOTAL 104 mg/dL (0-200); CKMB 0.3 U/L (0.0-3.6); CREATINE KINASE 58 UL (21-215); HDL CHOLESTEROL 44 mg/dL (32-96); LDL CHOLESTEROL 26 mg/dL (0-100); LDL-HDL RATIO 0.6 ratio (1.5-3.5); PRO BNP 182 pg/mL (0-125); TRIGLYCERIDE 170 mg/dL (30-200)
[2017-09-09 16:30] LABS: TROPONIN-I < 0.017 ng/mL (0.000-0.060)
== END 2017-09-09 18:17 | disposition home or self-care (01) ==
LOC: D.ER 14:48
PROVIDERS: Family Medicine
DX: R07.89 Other chest pain (principal)

== ENCOUNTER 2017-10-26 14:57 | Emergency (ER) | payer MEDICARE ==
[~2017-10-26] VITALS: Ht 165.1 cm; Wt 81.8 kg
[2017-10-26 14:59] VITALS: Ht 165.1 cm; Wt 81.8 kg
[2017-10-26] MEDS ORDERED: CYMBALTA30 MG PO (15:03)
[2017-10-26] MEDS ORDERED: GLUCOTROL 5 MG T5 MG PO (15:04)
[2017-10-26 16:59] LABS: APPEARANCE CLOUDY (CLEAR); COLOR DK YELLOW (YELLOW); GLUCOSE NEGATIVE (NEGATIVE); NITRITE POSITIVE (NEGATIVE); PROTEIN NEGATIVE (NEGATIVE)
[2017-10-26 17:00] LABS: BILIRUBIN NEGATIVE (NEGATIVE); KETONE MODERATE mg/dL (NEGATIVE); UROBILINOGEN NORMAL (NORMAL)
[2017-10-26 17:01] LABS: BACTERIA MANY /hpf (NONE SEEN); EPITHELIAL CELLS RARE /hpf (0-5); RED CELLS - URINE NONE SEEN /hpf (0-5); WHITE CELLS - URINE >50 /hpf (0-5)
[2017-10-26 17:42] LABS: BASOPHILS 0.2 % (0-2); EOSINOPHILS 1.5 % (0-7); HEMATOCRIT 40.4 % (36.0-48.0); IMMATURE GRANULOCYTES 0.3 % (0-5); LYMPHOCYTES 22.8 % (15-50); MCH 25.2 pg (26.0-34.0); MCHC 32.2 g/dL (31.0-37.0); MCV 78.4 fL (80.0-100.0); MEAN PLATELET VOLUME 10.8 fL (7.4-10.4); MONOCYTES 7.2 % (2-11); PLATELET COUNT 267 10x3/uL (130-400); RBC 5.15 10x6/uL (4.00-5.40); RDW 15.2 % (11.5-14.5)
[2017-10-26 18:06] LABS: BILIRUBIN - TOTAL 1.31 mg/dL (0.2-1.3); CALCIUM 9.2 mg/dL (8.5-10.1); CARBON DIOXIDE 27.6 mmol/L (21.0-32.0); CREATININE - SERUM 0.9 mg/dL (0.6-1.3); POTASSIUM - SERUM 3.6 mmol/L (3.5-5.1); PROTEIN - SERUM 7.6 g/dL (6.4-8.2)
[2017-10-26] MEDS ORDERED: LEVAQUIN500 MG PO (18:48)
[2017-10-26] MEDS ORDERED: PREDNISONE50 MG PO (18:48)
[2017-10-26 19:15] VITALS: BP 145/80
== END 2017-10-26 19:15 | disposition home or self-care (01) ==
LOC: D.ER 14:57
PROVIDERS: Family Medicine
DX: N39.0 Urinary tract infection, site not specified (principal); E86.0 Dehydration; M35.3 Polymyalgia rheumatica; I10 Essential (primary) hypertension; J44.9 Chronic obstructive pulmonary disease, unspecified

== ENCOUNTER → 2019-05-04 09:43 | Outpatient (CLI) | payer OTHER ==
--- NOTE | ~2019-05-04 | EC ---
PATIENT:FRANCESCO SAMAYOA DATE OF SERVICE: 05/04/19 SEX: F MEDICAL RECORD: [id number] DATE OF : 45 [facility]GE [facility] PAT[facility]: 73 ADMISSION DATE: 05/04/19 REFERRING PHYSICIAN: INTERPRETING PHYSICIAN: LOBO AVILA MD ECHOCARDIOGRAM REPORT ECHO CHARGES 4 ECHO COMPLETE Date: 05/04/19 CLINICAL DIAGNOSIS: CARDIOMYOPATHY/PALPITATIONS/ TACHYCARDIA H/O HTN/A-FIB ECHOCARDIOGRAPHIC MEASUREMENTS (adult normal given) AC root (d.<3.7cm) 3.1 cm LV Septum d (<1.2 cm> 1.5 cm Valve Excursion 2.0 cm LV Septum (systole) 1.6 cm Left Atria (s.<4.0cm> 3.2 cm LVPW d(<1.2cm) 1.2 cm RV (d.<2.3cm) 2.2 cm LVPW (sytole) 1.7 cm LV diastole(<5.6CM) 5.3 cm MV E-F(>70mm/sec) cm LV systole 3.6 cm LVOT Diameter 1.9 cm MV exc.(>10mm) cm Est.ejection fraction (50-75%) % DOPPLER: LVIT cm/sec A 101 cm/sec E 43.0 cm/sec LA cm/sec RVSP 18.0 mmHg LVOT 83.0 cm/sec AOP1/2T m/s Asc. Ao 122 cm/sec RVOT 74.0 cm/sec RA cm/sec PA 91.0 cm/sec AV Gradient Peak 6.0 mmHg AV Mean 3.1 mmHg AV Area 2.1 cm MV Gradient Peak 4.7 mmHg MV Mean 1.4 mmHg MV Area cm COMMENTS: OP - HC Lot Associate: 1 ANDRE NEWARK Telecommunications Network Engineer: 1 Dr. Avila TAPE# PACS Pericardial Effusion N DATE OF SERVICE: 05/04/2019 FINDINGS: 1. Left ventricular chamber size is within normal limits. Left ventricular systolic function is mildly reduced at 40% to 45%. 2. Left atrium is within normal limits at 3.2 cm. Right atrium and right ventricular chamber sizes are as well within normal limits. 3. Valvular structures have normal structure and motion. 4. Doppler interrogation reveals only trace mitral regurgitation, no other ECHOCARDIOGRAM REPORT [id number] FRANCESCO SAMAYOA valvular insufficiency or stenosis. Pulmonary systolic pressure estimated at 18 mmHg. 5. No evidence of pericardial effusion or left ventricular thrombus. TRANSINT:[id number] Voice Confirmation ID: [id number] DOCUMENT ID: [id number] LOBO AVILA MD CC: [id number] DICTATION DATE: 05/07/191656 GILL NET STRINGER: 05/07/19 2251 DEP CLI 05/04/19 [place] [id number] [place] [id number]
[~2019-05-04 09:43] MED LIST changes: +CYMBALTA30 MG PO; +GLUCOTROL 5 MG T5 MG PO; +LEVAQUIN500 MG PO; +PREDNISONE50 MG PO
== END | disposition home or self-care (01) ==
LOC: D.HCCECHO 09:43
PROVIDERS: ATTEND Internal Medicine Interventional Cardiology
DX: I42.0 Dilated cardiomyopathy (principal)

== ENCOUNTER → 2020-01-23 | Emergency (ER) | payer SELFPAY ==
[~2020-01-23] VITALS: Ht 165.1 cm; Wt 80.0 kg
[2020-01-23 17:43] VITALS: Ht 165.1 cm; Wt 80.0 kg
[2020-01-23 18:49] LABS: ANION GAP 14.9 mmol/L (8-16); CALCIUM 8.7 mg/dL (8.5-10.1); CARBON DIOXIDE 25.8 mmol/L (21.0-32.0); CREATININE - SERUM 1.6 mg/dL (0.6-1.3); POTASSIUM - SERUM 4.7 mmol/L (3.5-5.1)
[2020-01-23 18:55] LABS: ALBUMIN 3.3 g/dL (3.4-5.0); BILIRUBIN - TOTAL 0.51 mg/dL (0.2-1.3); PROTEIN - SERUM 6.5 g/dL (6.4-8.2)
[2020-01-23 19:08] LABS: BASOPHILS 0.2 % (0-2); EOSINOPHILS 0.2 % (0-7); HEMATOCRIT 42.3 % (36.0-48.0); HEMOGLOBIN 12.5 g/dL (12-16); IMMATURE GRANULOCYTES 1.2 % (0-5); LYMPHOCYTES 11.3 % (15-50); MCH 22.9 pg (26.0-34.0); MCHC 29.6 g/dL (31.0-37.0); MCV 77.3 fL (80.0-100.0); MEAN PLATELET VOLUME 9.8 fL (7.4-10.4); MONOCYTES 3.9 % (2-11); NEUTROPHILS 83.2 % (40-80); PLATELET COUNT 234 10x3/uL (130-400); RBC 5.47 10x6/uL (4.00-5.40); RDW 18.1 % (11.5-14.5); WBC 18.5 10x3/uL (4.8-10.8)
[2020-01-23 20:30] VITALS: BP 132/88
== END | disposition home or self-care (01) ==
LOC: D.ER 17:38
PROVIDERS: Family Medicine
DX: I95.9 Hypotension, unspecified (principal); R53.1 Weakness; I10 Essential (primary) hypertension; J44.9 Chronic obstructive pulmonary disease, unspecified